=== PATIENT | female | born 1985 | race Caucasian/White ===

== ENCOUNTER 2019-04-09 06:40 | Emergency (ER) | payer MEDICAID ==
[~2019-04-09] VITALS: Ht 162.6 cm; Wt 82.7 kg
[2019-04-09 06:48] VITALS: Ht 162.6 cm; Wt 82.7 kg
[2019-04-09 08:30] VITALS: BP 122/74
== END 2019-04-09 08:57 | disposition home or self-care (01) ==
LOC: ED 06:40
DX: R20.0 Anesthesia of skin (principal); M79.605 Pain in left leg; M79.602 Pain in left arm; Z90.49 Acquired absence of other specified parts of digestive tract; Z98.890 Other specified postprocedural states
CPT/HCPCS: J1885